=== PATIENT | female | born 1960 | race Caucasian/White ===

== ENCOUNTER 2016-07-11 01:14 | Emergency (ER) | payer BC, OTHER ==
[2016-07-11] MEDS: SODIUM CHLORIDE 0.9% 1000ML 1,000 ML IVS ONE (02:16)
[2016-07-11] MEDS ORDERED: KCL 20MEQ/WATER FOR INJ 100ML 100 ML IVPB ONE (03:39)
--- NOTE | 2016-07-11 04:00 | ED.PDOC ---
History of Present Illness - General Chief Complaint: GI Problem Stated Complaint: Abdominal pain Time Seen by Provider: 07/11/16 01:41 Source: patient, RN notes reviewed, Vital Signs reviewed Exam Limitations: no limitations - History of Present Illness Initial Comments: Patient is a 56 y/o female who has had abdominal pain, vomiting and diarrhea x 2 days. Yesterday AM she had a fever of 101.0. She has vomited once, however she has watery diarrhea. The abdominal pain is mild, constant, in the lower abdomen. Timing/Duration: getting worse, other - 2 days Severity: mild Improving Factors: other - laying down Worsening Factors: other - sitting up Associated Symptoms: fever/chills, loss of appetite, nausea/vomiting Allergies/Adverse Reactions: Allergies NO KNOWN ALLERGY Allergy (Verified 07/11/16 01:34) Home Medications: Ambulatory Orders Levothyroxine Sodium [Synthroid] 112 mcg PO 0700 07/11/16 Ondansetron [Zofran Odt] 8 mg PO Q8H PRN #10 tab 07/11/16 Potassium Chloride Tab [Micro-K] 10 meq PO DAILY PRN #15 tab 07/11/16 Review of Systems - Review of Systems Constitutional: States: chills, fever EENTM: States: no symptoms reported Respiratory: States: no symptoms reported Cardiology: States: no symptoms reported Gastrointestinal/Abdominal: States: abdominal pain, diarrhea, nausea Genitourinary: States: no symptoms reported Musculoskeletal: States: no symptoms reported Skin: States: no symptoms reported Neurological: States: no symptoms reported Endocrine: States: no symptoms reported Hematologic/Lymphatic: States: no symptoms reported Past Medical History (General) - Patient Medical History Hx Seizures: No Hx Stroke: No Hx Dementia: No Hx Asthma: No Hx of COPD: No Hx Cardiac Disorders: No Hx Congestive Heart Failure: No Hx Pacemaker: No Hx Hypertension: No Hx Thyroid Disease: Yes Hx Diabetes: No Hx Gastroesophageal Reflux: No Hx Renal Disease: No Hx Cancer: Yes - breast Hx of HIV: No Hx MRSA: No Surgical History: cancer surgery, Hysterectomy - Vaccination History Hx Tetanus, Diphtheria Vaccination: No Hx Influenza Vaccination: Yes Hx Pneumococcal Vaccination: No Immunizations Up to Date: Yes - Social History Hx Tobacco Use: No - Female History Patient is a Female of Child Bearing Age (10 -59 yrs old): Yes Patient : No Family Medical History - Family History Mother Family History: Unknown Living Status: Unknown Physical Exam - Physical Exam General Appearance: Alert, Obvious distress - Mild Ears, Nose, Throat: hearing grossly normal, normal ENT inspection Respiratory: lungs clear, normal breath sounds, no respiratory distress, no accessory muscle use Cardiovascular/Chest: regular rate, rhythm, no edema, no gallop, no murmur Gastrointestinal/Abdominal: soft, no organomegaly, abnormal bowel sounds - hyperactive, tenderness - epigastric Back Exam: no CVA tenderness Extremity: normal range of motion, non-tender, normal inspection, no pedal edema , no calf tenderness Neurologic: alert, normal mood/affect, oriented x 3 Skin Exam: normal color, warm/dry Progress - Results/Orders Results/Orders: 07/11/16 07/11/16 07/11/16 01:31 01:37 02:18 Temperature 97.8 F Pulse Rate [ 80 80 66 Right radial] Respiratory 20 20 18 Rate Blood Pressure 118/75 121/75 [Right Arm] O2 Sat by Pulse 99 94 L Oximetry 07/11/16 03:00 Temperature Pulse Rate [ 72 Right radial] Respiratory 20 Rate Blood Pressure 115/67 [Right Arm] O2 Sat by Pulse 98 Oximetry 07/11/16 03:37 KCl 20Meq/Water For Inj 100Ml [Potassium 20meq in Water 100ml] 20 meq Premix Bag 1 bag IVPB ONCE 07/11/16 03:49 Sodium Chloride 0.9% 1000ML [Ns 1000 ml] 1,000 ml IVS .KVO Laboratory Results WBC 4.9 K/mm3 (4.8-10.8) 07/11/16 02:15 RBC 4.52 M/mm3 (4.20-5.40) 07/11/16 02:15 Hgb 14.2 gm/dL (12.0-16.0) 07/11/16 02:15 Hct 42.7 % (36.0-47.0) 07/11/16 02:15 MCV 94.5 fl (81.0-99.0) 07/11/16 02:15 MCH 31.5 pg (27.0-31.0) H 07/11/16 02:15 MCHC 33.3 g/dL (33.0-37.0) 07/11/16 02:15 RDW 12.2 % (11.5-14.5) 07/11/16 02:15 Plt Count 140 K/mm3 (130-400) 07/11/16 02:15 MPV 8.5 fl (7.40-10.4) 07/11/16 02:15 Absolute Neuts (auto) 4.20 K/uL (1.8-6.8) 07/11/16 02:15 Absolute Lymphs (auto) 0.40 K/uL (1.0-3.4) L 07/11/16 02:15 Absolute Monos (auto) 0.30 K/uL (0.2-0.8) 07/11/16 02:15 Absolute Eos (auto) 0.10 K/uL (0.0-0.4) 07/11/16 02:15 Absolute Basos (auto) 0.00 K/uL (0.0-0.1) 07/11/16 02:15 Neutrophils % 85.3 % (42.0-78.0) H 07/11/16 02:15 Lymphocytes % 7.5 % (20.0-50.0) L 07/11/16 02:15 Monocytes % 5.8 % (2.0-9.0) 07/11/16 02:15 Eosinophils % 1.2 % (1.0-5.0) 07/11/16 02:15 Basophils % 0.2 % (0.0-2.0) 07/11/16 02:15 Sodium 142 mmol/L (135-145) 07/11/16 02:15 Potassium 3.5 mmol/L (3.6-5.0) L 07/11/16 02:15 Chloride 108 mmol/L (101-111) 07/11/16 02:15 Carbon Dioxide 28 mmol/L (21-31) 07/11/16 02:15 Anion Gap 9.5 (12-18) L 07/11/16 02:15 BUN 8 mg/dL (7-18) 07/11/16 02:15 Creatinine 0.79 mg/dL (0.6-1.3) 07/11/16 02:15 BUN/Creatinine Ratio 10.1 (10-20) 07/11/16 02:15 Random Glucose 109 mg/dL (70-105) H 07/11/16 02:15 Serum Osmolality 282.0 mOsm/L (275-295) 07/11/16 02:15 Calcium 8.0 mg/dL (8.4-10.2) L 07/11/16 02:15 Total Bilirubin 0.4 mg/dL (0.2-1.0) 07/11/16 02:15 AST 26 IU/L (10-42) 07/11/16 02:15 ALT 18 IU/L (10-60) 07/11/16 02:15 Alkaline Phosphatase 49 IU/L (42-121) 07/11/16 02:15 Serum Total Protein 5.9 gm/dL (6.4-8.2) L 07/11/16 02:15 Albumin 3.4 g/dl (3.2-5.5) 07/11/16 02:15 Globulin 2.5 gm/dL (2.3-3.5) 07/11/16 02:15 Albumin/Globulin Ratio 1.4 (1.1-1.9) 07/11/16 02:15 Urine Color Yellow (Yellow) 07/11/16 01:45 Urine Appearance Clear (Clear) 07/11/16 01:45 Urine pH 6.0 (4.5-7.8) 07/11/16 01:45 Ur Specific [place] 1.015 (1.005-1.030) 07/11/16 01:45 Urine Protein Negative mg/dL 07/11/16 01:45 Urine Glucose (UA) Negative mg/dL (Negative) 07/11/16 01:45 Urine Ketones 15 mg/dL (NEGATIVE) H 07/11/16 01:45 Urine Blood Moderate (Negative) H 07/11/16 01:45 Urine Nitrite Negative 07/11/16 01:45 Urine Bilirubin Negative (NEGATIVE) 07/11/16 01:45 Urine Urobilinogen 1.0 mg/dL (0.2-1.0) 07/11/16 01:45 Ur Leukocyte Esterase Negative (Negative) 07/11/16 01:45 Urine RBC 3-5 /hpf H 07/11/16 01:45 Urine WBC 0-1 /hpf 07/11/16 01:45 Ur Epithelial Cells 0-1 /hpf 07/11/16 01:45 Urine Bacteria 1+ 07/11/16 01:45 Departure - Departure Clinical Impression: Gastroenteritis, Dehydration, mild, Hypokalemia, gastrointestinal losses Time of Disposition: 05:04 Disposition: Discharge to Home or Self Care Condition: Fair Departure Forms: ED Discharge - Pt. Copy, Patient Portal Self Enrollment Instructions: DI for Hypokalemia, Hypokalemia, DI for Viral Gastroenteritis -- Adult, Gastroenteritis Diet, Viral Gastroenteritis Diet: bland diet Referrals: Ji Joaquin MD [Primary Care Provider] - 1-2 Weeks Prescriptions: Potassium Chloride Tab [Micro-K] 10 meq PO DAILY PRN #15 tab PRN Reason: Diarrhea Ondansetron [Zofran Odt] 8 mg PO Q8H PRN #10 tab PRN Reason: Nausea/Vomiting Home Medications: Ambulatory Orders Levothyroxine Sodium [Synthroid] 112 mcg PO 0700 07/11/16 Ondansetron [Zofran Odt] 8 mg PO Q8H PRN #10 tab 07/11/16 Potassium Chloride Tab [Micro-K] 10 meq PO DAILY PRN #15 tab 07/11/16 Additional Instructions: Stay well-hydrated. Follow up with PCP if symptoms persist or ED if symptoms worsen.
[2016-07-11] MEDS: ONDANSETRON INJ 4 MG/2 ML VIAL IV ONE (04:02)
[2016-07-11] MEDS: SODIUM CHLORIDE 0.9% 1000ML 1,000 ML IVS PRN (04:04)
[2016-07-11] MEDS: KCL 20MEQ/WATER FOR INJ 100ML 20 MEQ in PREMIX BAG 1 BAG IVPB ONE (04:08)
[2016-07-11 05:44] VITALS: BP 115/62; TEMP 98.1; O2SAT 98
== END 2016-07-11 05:35 | disposition home or self-care (01) ==
LOC: ER 01:14
DX: K52.9 Noninfective gastroenteritis and colitis, unspecified (principal); E87.6 Hypokalemia; E86.0 Dehydration; E07.9 Disorder of thyroid, unspecified; Z85.3 Personal history of malignant neoplasm of breast
CPT/HCPCS: 36600; 80053; 81001; 82803; 82805; 85025; 94002; J2405; J3480; J7030

== ENCOUNTER → 2016-07-20 | Outpatient (CLI) | payer OTHER ==
--- NOTE | 2016-07-20 10:39 | CT ---
EXAM DESCRIPTION: Abdomen/Pelvis w/wo Contrast CLINICAL HISTORY: 56 years,Female,HEMATURIA COMPARISON: None TECHNIQUE: Multiple axial tomographic images were obtained of the abdomen and pelvis with and without IV contrast and oral contrast. Then reconstructed in sagittal and coronal planes. FINDINGS: The kidneys demonstrate a 5 x 2 mm stone in the midpole left kidney nonobstructing the ureters unremarkable. The adrenal glands are unremarkable. The spleen is unremarkable. The liver is unremarkable. The pancreas is unremarkable. The gallbladder is unremarkable. The included bowel is is unremarkable. The appendix is unremarkable. There is no free air, free fluid, masses, or significant adenopathy. Severe disease at L3-4. #Soft tissues unremarkable.. IMPRESSION: Small nonobstructing stone midpole left kidney. Severe disease at L3-4 Electronically signed by: Roshan Grimes MD 07/20/2016 10:38 AM CDT
== END | disposition home or self-care (01) ==
LOC: CT 07:58
PROVIDERS: ATTEND Family Medicine
DX: R31.9 Hematuria, unspecified (principal)

== ENCOUNTER → 2017-09-22 | Outpatient (CLI) | payer OTHER ==
--- NOTE | 2017-09-22 17:27 | RAD ---
EXAM DESCRIPTION: Fingers,Right CLINICAL HISTORY: 57 years Female, PAIN IN THUMB COMPARISON: None. FINDINGS: Right thumb three x-ray views shows no fracture or dislocation. Normal bony mineralization. Degenerative changes are mild. IMPRESSION: Negative for fracture or dislocation. Electronically signed by: Willie Wang MD 09/22/2017 5:25 PM CDT
--- NOTE | 2017-09-22 17:28 | RAD ---
EXAM DESCRIPTION: Hand,Right 3 Views CLINICAL HISTORY: RT HAND PAIN COMPARISON: None Available. TECHNIQUE: AP, LATERAL, AND OBLIQUE FINDINGS: Three-view right hand shows no fracture or dislocation. There is no bone lesion. Mild degenerative spurring of the base of the first metacarpal. There is no radiopaque foreign body. IMPRESSION: Negative for fracture. Electronically signed by: Willie Wang MD 09/22/2017 5:26 PM CDT
--- NOTE | 2017-09-22 17:29 | RAD ---
EXAM DESCRIPTION: Knee,Left Complete CLINICAL HISTORY: 57 years, Female, LEFT KNEE PAIN COMPARISON: None TECHNIQUE: Four views of the left knee including standing views FINDINGS: No fracture or dislocation. Bones appear normally mineralized with normal trabecular pattern. Narrowed appearance of lateral more than medial compartments on frontal view. Degenerative spurring is seen at the intercondylar notch and tibial spines with lateral joint line spurring. Lateral view shows normal position of the patella. Mild posterior superior patellar spurring. No definite suprapatellar knee joint effusion. Normal contour of quadriceps and patellar tendons. No abnormal patellar tilt or subluxation on patellar sunrise view. Mild medial and lateral posterior patellar spurring is present. IMPRESSION: Degenerative changes as described. Electronically signed by: Willie Wang MD 09/22/2017 5:28 PM CDT
--- NOTE | 2017-09-22 17:30 | RAD ---
EXAM DESCRIPTION: Pelvis CLINICAL HISTORY: 57 years Female, LEFT HIP PAIN COMPARISON: None. TECHNIQUE: AP view of pelvis and hips FINDINGS: No fracture of the pelvic ring. Intact hip joints. No femoral fracture. Sacrum and lower L spine appear intact. IMPRESSION: Negative for fracture. Electronically signed by: Willie Wang MD 09/22/2017 5:29 PM CDT
== END ==
LOC: RAD 08:58
PROVIDERS: ATTEND Orthopaedic Surgery
DX: M25.562 Pain in left knee (principal); M25.552 Pain in left hip; M79.641 Pain in right hand

== ENCOUNTER → 2018-05-25 | Outpatient (CLI) | payer OTHER | LOC: GMAE 16:06 | PROVIDERS: ATTEND Family Medicine | DX: R00.2 Palpitations (principal) ==

== ENCOUNTER 2018-08-17 06:29 | Emergency (ER) | payer OTHER ==
[2018-08-17 06:46] VITALS: O2SAT 98
[2018-08-17] MEDS ORDERED: PHENAZOPYRIDINE HCL 200 MG TAB PO ONE (07:04)
[2018-08-17] MEDS: PHENAZOPYRIDINE HCL 200 MG TAB PO ONE (07:12)
--- NOTE | 2018-08-17 07:19 | ED.PDOC ---
History of Present Illness - General Chief Complaint: Problem Stated Complaint: blood in urine and burning Time Seen by Provider: 08/17/18 07:17 Source: patient, RN notes reviewed Exam Limitations: no limitations - History of Present Illness Initial Comments: Cristela Helton 58 y/o female came to ER woke up this am with burning pain on urination and urgency.No fever,chills,vomiting. Timing/Duration: just prior to arrival Quality: moderate, burning Onset Location: suprapubic Radiation: none Activites at Onset: none Prior abdominal problems: none Sexual intercourse history: not active Improving Factors: nothing Worsening Factors: nothing Associated Symptoms: denies symptoms Allergies/Adverse Reactions: Allergies NO KNOWN ALLERGY Allergy (Verified 08/17/18 06:46) Home Medications: Ambulatory Orders Levothyroxine Sodium [Synthroid] 112 mcg PO 0700 07/11/16 Ondansetron [Zofran Odt] 8 mg PO Q8H PRN #10 tab 07/11/16 Potassium Chloride Tab [Micro-K] 10 meq PO DAILY PRN #15 tab 07/11/16 Phenazopyridine HCl [Pyridium] 200 mg PO BID #10 tab 08/17/18 Sulfa/Trimeth 800/160 (Ds) Tab [Bactrim DS] 1 tablet PO BID 10 Days #20 tab 08/17/18 Review of Systems - Review of Systems Genitourinary: States: see HPI All other Systems: Reviewed and Negative, No Change from Baseline Past Medical History (General) - Patient Medical History Hx Seizures: No Hx Stroke: No Hx Dementia: No Hx Asthma: No Hx of COPD: No Hx Cardiac Disorders: No Hx Congestive Heart Failure: No Hx Pacemaker: No Hx Hypertension: No Hx Thyroid Disease: Yes Hx Diabetes: No Hx Gastroesophageal Reflux: No Hx Renal Disease: No Hx Cancer: Yes - breast Hx of HIV: No Hx Hepatitis C: No Hx MRSA: No Surgical History: other - thyroidectomy,hysterectomy,bilateral mastectomy,shoulder,hips - Vaccination History Hx Tetanus, Diphtheria Vaccination: No Hx Influenza Vaccination: No Hx Pneumococcal Vaccination: No Immunizations Up to Date: No - Social History Hx Tobacco Use: No Hx Alcohol Use: No Hx Substance Use: No Hx Substance Use Treatment: No Hx Depression: No - Female History Patient is a Female of Child Bearing Age (10 -59 yrs old): No Patient : No Family Medical History - Family History Mother Family History: Unknown Living Status: Hx Family Cancer: Yes - LUNG-mom;Prostate-dad;breast-Grandmother Father Living Status: Hx Family Cancer: Yes - PROSTATE Physical Exam - Physical Exam General Appearance: Alert, Comfortable, Frail Eyes, Ears, Nose, Throat Exam: normal ENT inspection Neck: supple, normal inspection Cardiovascular/Respiratory: regular rate, rhythm, no M/R/G, normal peripheral pulses, normal breath sounds Gastrointestinal/Abdominal: normal bowel sounds, non tender, soft, other - suprapubic discomfort Back Exam: no CVA tenderness, no vertebral tenderness Extremity: normal inspection, no pedal edema, no calf tenderness Skin Exam: normal color, warm/dry Progress - Progress Progress: 08/17/18 07:22 Vital Signs - 24 hr 08/17/18 06:41 Temperature 97.4 F L Pulse Rate [ 66 monitor] Respiratory 18 Rate Blood Pressure 130/63 [LA] O2 Sat by Pulse 98 Oximetry - Results/Orders Results/Orders: 08/17/18 06:47 Urine Culture Stat Laboratory Results - last 24 hr 08/17/18 06:47 Urine Color Red H Urine Appearance Clear Urine pH 8.5 H Ur Specific [place] 1.015 Urine Protein 30 Urine Glucose (UA) Negative Urine Ketones Negative Urine Blood Large H Urine Nitrite Negative Urine Bilirubin Negative Urine Urobilinogen 0.2 Ur Leukocyte Esterase Small H Urine RBC Tntc H Urine WBC Obscured by rbc's H Ur Epithelial Cells 0 Urine Bacteria Obscured by rbc's H Discuss test results findings with patient Departure - Departure Clinical Impression: Urinary tract infection Qualifiers: Urinary tract infection type: acute cystitis Hematuria presence: with hematuria Qualified Code(s): N30.01 - Acute cystitis with hematuria Time of Disposition: 07:23 Disposition: Discharge to Home or Self Care Condition: Good Departure Forms: ED Discharge - Pt. Copy, Patient Portal Self Enrollment Instructions: Acute Cystitis (DC), Urinary Tract Infections in Adults Referrals: AYAN BARRERA MD [Primary Care Provider] - 1-2 Weeks Prescriptions: Phenazopyridine HCl [Pyridium] 200 mg PO BID #10 tab Sulfa/Trimeth 800/160 (Ds) Tab [Bactrim DS] 1 tablet PO BID 10 Days #20 tab Home Medications: Ambulatory Orders Levothyroxine Sodium [Synthroid] 112 mcg PO 0700 07/11/16 Ondansetron [Zofran Odt] 8 mg PO Q8H PRN #10 tab 07/11/16 Potassium Chloride Tab [Micro-K] 10 meq PO DAILY PRN #15 tab 07/11/16 Phenazopyridine HCl [Pyridium] 200 mg PO BID #10 tab 08/17/18 Sulfa/Trimeth 800/160 (Ds) Tab [Bactrim DS] 1 tablet PO BID 10 Days #20 tab 08/17/18 Additional Instructions: Follow up with primary Md for referral to Urologist for recheck in 7 days 23 Aug 2018
[2018-08-17] MEDS: SULFA/TRIMETH 800/160 (DS) TAB 1 EA TAB PO ONE (07:36)
[2018-08-17 07:42] VITALS: BP 153/62; TEMP 97.5
== END 2018-08-17 07:41 | disposition home or self-care (01) ==
LOC: ER 06:29
DX: N30.01 Acute cystitis with hematuria (principal); E07.9 Disorder of thyroid, unspecified; Z85.3 Personal history of malignant neoplasm of breast

== ENCOUNTER → 2018-10-16 | Outpatient (CLI) | payer OTHER ==
--- NOTE | 2018-10-16 12:07 | RAD ---
EXAM DESCRIPTION: Hand,Right 3 Views CLINICAL HISTORY: M79.642 COMPARISON: Radiographs of the right hand dated 09/22/2017. TECHNIQUE: AP, LATERAL, AND OBLIQUE radiograph of the right hand were obtained. FINDINGS: The visualized bones appear well mineralized. No acute fracture or dislocation. The soft tissues appear grossly unremarkable. Mild degenerative changes identified in the first carpometacarpal joint and interphalangeal joints. IMPRESSION: No acute traumatic abnormality is identified in the right hand.. Electronically signed by: Marysol Robertson MD 10/16/2018 12:05 PM CDT
== END ==
LOC: RAD 09:47
PROVIDERS: ATTEND Orthopaedic Surgery
DX: M79.641 Pain in right hand (principal)

== ENCOUNTER 2018-10-27 22:34 | Emergency (ER) | payer OTHER ==
[2018-10-27 22:53] VITALS: TEMP 97.3; O2SAT 97
[2018-10-27] MEDS ORDERED: HYDROcodone 10MG/APAP 325MG 1 EA TAB PO ONE (23:17)
--- NOTE | 2018-10-27 23:21 | ED.PDOC ---
History of Present Illness - General Chief Complaint: Problem Time Seen by Provider: 10/27/18 23:17 Source: patient - History of Present Illness Initial Comments: Dx'ed with UTI earlier this kylah but has severe pain that pyridium is not helping Timing/Duration: yesterday Quality: severe, burning Radiation: none Activites at Onset: none Prior abdominal problems: similar symptoms Improving Factors: nothing Associated Symptoms: abdominal pain, dysuria Allergies/Adverse Reactions: Allergies NO KNOWN ALLERGY Allergy (Verified 08/17/18 06:46) Home Medications: Ambulatory Orders Levothyroxine Sodium [Synthroid] 112 mcg PO 0700 07/11/16 Ondansetron [Zofran Odt] 8 mg PO Q8H PRN #10 tab 07/11/16 Potassium Chloride Tab [Micro-K] 10 meq PO DAILY PRN #15 tab 07/11/16 Phenazopyridine HCl [Pyridium] 200 mg PO BID #10 tab 08/17/18 Sulfa/Trimeth 800/160 (Ds) Tab [Bactrim DS] 1 tablet PO BID 10 Days #20 tab 08/17/18 flavoxATE HYDROCHLORIDE [Urispas] 100 mg PO Q6HR PRN #15 tab 10/27/18 Review of Systems - Review of Systems Constitutional: Denies: chills, fever EENTM: States: no symptoms reported Respiratory: States: no symptoms reported Cardiology: States: no symptoms reported Gastrointestinal/Abdominal: States: abdominal pain. Denies: nausea, vomiting Genitourinary: States: dysuria, frequency, hematuria Skin: States: no symptoms reported Neurological: States: no symptoms reported Past Medical History (General) - Patient Medical History Hx Seizures: No Hx Stroke: No Hx Dementia: No Hx Asthma: No Hx of COPD: No Hx Cardiac Disorders: No Hx Congestive Heart Failure: No Hx Pacemaker: No Hx Hypertension: No Hx Thyroid Disease: Yes Hx Diabetes: No Hx Gastroesophageal Reflux: No Hx Renal Disease: No Hx Cancer: Yes - breast Hx of HIV: No Hx Hepatitis C: No Hx MRSA: No - Vaccination History Hx Tetanus, Diphtheria Vaccination: No Hx Influenza Vaccination: No Hx Pneumococcal Vaccination: No - Social History Hx Tobacco Use: No Hx Alcohol Use: No Hx Substance Use: No Hx Substance Use Treatment: No Hx Depression: No - Female History Patient : No Family Medical History - Family History Mother Family History: Unknown Living Status: Hx Family Cancer: Yes - LUNG-mom;Prostate-dad;breast-Grandmother Father Living Status: Hx Family Cancer: Yes - PROSTATE Physical Exam - Physical Exam General Appearance: Alert, Anxious, Obvious distress Back Exam: normal inspection, no CVA tenderness Departure - Departure Clinical Impression: Hemorrhagic cystitis Disposition: Discharge to Home or Self Care Departure Forms: ED Discharge - Pt. Copy, Patient Portal Self Enrollment Referrals: AYAN BARRERA MD [Primary Care Provider] - 1-2 Weeks Prescriptions: flavoxATE HYDROCHLORIDE [Urispas] 100 mg PO Q6HR PRN #15 tab PRN Reason: Abdominal Distress Home Medications: Ambulatory Orders Levothyroxine Sodium [Synthroid] 112 mcg PO 0700 07/11/16 Ondansetron [Zofran Odt] 8 mg PO Q8H PRN #10 tab 07/11/16 Potassium Chloride Tab [Micro-K] 10 meq PO DAILY PRN #15 tab 07/11/16 Phenazopyridine HCl [Pyridium] 200 mg PO BID #10 tab 08/17/18 Sulfa/Trimeth 800/160 (Ds) Tab [Bactrim DS] 1 tablet PO BID 10 Days #20 tab 08/17/18 flavoxATE HYDROCHLORIDE [Urispas] 100 mg PO Q6HR PRN #15 tab 10/27/18
[2018-10-27] MEDS ORDERED: DICYCLOMINE HCL 20 MG TAB PO ONE (23:33)
[2018-10-27 23:46] VITALS: BP 125/64
== END 2018-10-27 23:45 | disposition home or self-care (01) ==
LOC: ER 22:34
DX: N30.91 Cystitis, unspecified with hematuria (principal); E07.9 Disorder of thyroid, unspecified; Z85.3 Personal history of malignant neoplasm of breast

== ENCOUNTER → 2018-11-07 | Outpatient (CLI) | payer OTHER | LOC: LAB.O 13:02 | PROVIDERS: ATTEND Orthopaedic Surgery | DX: Z01.818 Encounter for other preprocedural examination (principal) ==

== ENCOUNTER 2018-11-21 05:21 | Day surgery (SDC) | payer OTHER ==
[2018-11-21] MEDS ORDERED: LACTATED RINGERS 1,000 ML ONE (06:55)
[2018-11-21] MEDS ORDERED: ceFAZolin SODIUM 1 GM VIAL ONE ×2 (06:55→11:57)
[2018-11-21] MEDS ORDERED: SODIUM CHL 0.9% 100ML MINI-BAG 100 ML IVPB ONE (06:55)
[2018-11-21] MEDS ORDERED: LIDOCAINE 1% 10 ML VIAL INJ ONE (10:00)
[2018-11-21] MEDS ORDERED: PROPOFOL 200 MG/20 ML VIAL IV ONE (10:00)
[2018-11-21] MEDS ORDERED: BUPIVACAINE 0.25% INJ 30 ML VIAL INJ ONE (11:57)
[2018-11-21] MEDS ORDERED: VANCOMYCIN HCL INJ 1,000 MG VIAL IVPB ONE (11:57)
[2018-11-21] MEDS ORDERED: fentaNYL CITRATE INJ 50 MCG/ML AMP ONE (12:09)
[2018-11-21] MEDS ORDERED: MIDAZOLAM INJ 2 MG/2 ML VIAL ONE (12:23)
[2018-11-21] MEDS: LIDOCAINE 1% 50 ML VIAL INJ ONE ×2 (12:35→12:45)
[2018-11-21 14:04] VITALS: BP 129/64; TEMP 97.6; O2SAT 99
--- NOTE | 2018-11-23 08:13 | OP ---
DATE OF PROCEDURE: 11/21/18 PREOPERATIVE DIAGNOSIS: 1. Right trigger thumb. POSTOPERATIVE DIAGNOSIS: 1. Right trigger thumb. PROCEDURE: 1. Trigger thumb release. SURGEON: Amos Burr MD. INSURANCE SALES ASSOCIATE: Devendra Huffman CST, SA-C. ANESTHESIA: Local with sedation. COMPLICATIONS: None. FINDINGS: Triggering at the A1 wesley with severe stiffness of the digit. INDICATION: Cristela has a long history of triggering at the A1 wesley. She has developed severe stiffness with pain. She requested operative intervention. After discussing the risks, benefits and alternatives to operative therapy, the patient has given informed consent for trigger thumb release. PROCEDURE: The patient was brought to the Operating Room and placed in the supine position. Sedation was administered and local anesthetic was injected into the operative area. Following injection, the arm was sterilely prepped and draped. A transverse incision was made directly overlying the A1 wesley of the triggering digit and blunt dissection was carried down to the wesley while protecting the digital nerves. After identification of the wesley, the wesley was transected and a Rolla elevator was passed both proximally and distally to ensure complete release. The finger was flexed and extended and there was no evidence of locking or clicking. The wound was thoroughly irrigated and closed with Nylon suture. A sterile dressing was placed and the patient was taken to the Day Surgery Unit. POSTOPERATIVE PLAN: The patient has been encouraged to do range of motion of the digits and will followup with us in two days. #[id number] MTDD
== END 2018-11-21 13:50 | disposition home or self-care (01) ==
LOC: AMB 05:21
PROVIDERS: ATTEND Orthopaedic Surgery
DX: M65.311 Trigger thumb, right thumb (principal); Z79.899 Other long term (current) drug therapy
CPT/HCPCS: 01810; 26055; 80307; J0690; J2250; J3010; J3370; J3490; J7050; J7120

== ENCOUNTER → 2018-12-05 | Outpatient (CLI) | payer OTHER ==
--- NOTE | 2018-12-05 17:49 | US ---
EXAM DESCRIPTION: Renal: Ultrasound. CLINICAL HISTORY: 58 years Female HEMATURIA COMPARISON: CT scan of the abdomen 07/20/2016. TECHNIQUE: Transcutaneous scanning: Two-dimensional and Doppler modes. FINDINGS: Right kidney measures 9.7 x 4.8 x 4.5 cm; mid-renal cortical thickness normal. . Normal cortical echogenicity. No hydronephrosis No echogenic stones. Smooth contour of the kidney with no perinephric fluid. Normal vascularity. Proximal ureter not visualized. Left kidney measures 9.2 x 5.0 x 4.1 cm; mid-renal cortical thickness normal.. Normal cortical echogenicity. No hydronephrosis. 9.5 mm echogenic stone with acoustic shadowing located in the upper pole. Smooth contour of the kidney with no perinephric fluid. Normal vascularity.. Proximal ureter not seen visualized. Urinary bladder was visualized. 2.3 x 5.5 x 4.2 equals 27.5 mL. Ureteral jets were not evaluated by Doppler. No voiding. Abdominal aorta: not measured. IMPRESSION: 1. 9.5 mm echogenic stone in the upper pole of the left kidney. No evidence of obstruction. Kidney otherwise negative. 2. Left kidney is unremarkable. Electronically signed by: Devendra Jernigan MD 12/05/2018 5:47 PM CDT
== END ==
LOC: US 10:30
PROVIDERS: ATTEND Urology
DX: N30.91 Cystitis, unspecified with hematuria (principal); N20.0 Calculus of kidney

== ENCOUNTER → 2019-04-28 | Outpatient (CLI) | payer BC | LOC: GMAE 19:07 | PROVIDERS: ATTEND Family Medicine | DX: N39.0 Urinary tract infection, site not specified (principal) ==

== ENCOUNTER → 2019-05-04 | Outpatient (CLI) | payer BC | LOC: RESP 10:05 | PROVIDERS: ATTEND Family Medicine | DX: R00.0 Tachycardia, unspecified (principal) ==

== ENCOUNTER → 2020-05-27 | Outpatient (CLI) | payer BC | LOC: GMAE 16:54 | PROVIDERS: ATTEND Family Medicine | DX: N39.0 Urinary tract infection, site not specified (principal) ==